=== PATIENT | male | born 1965 ===

== ENCOUNTER 2021-03-16 11:38 | Day surgery (SDC) | payer OTHER ==
[~2021-03-16] VITALS: Ht 190.5 cm; Wt 129.9 kg
[~2021-03-16 11:38] MED LIST: ATOR20 PO; Adult Low Dose81 MG PO; Hydrochlorothia25 MG PO; Rapaflo8 MG PO; TAMS.4ER PO
[2021-03-16] MEDS ORDERED: THERA-D2000 UNIT PO (12:12)
[2021-03-16] MEDS ORDERED: VITAMIN B-121000 MCG PO (12:12)
== END 2021-03-16 14:06 | disposition home or self-care (01) ==
LOC: ORSCSDS 11:38
PROVIDERS: Surgery
PROC: 0DB58ZX Excision of Esophagus, Via Natural or Artificial Opening Endoscopic, Diagnostic (ICD-10-PCS; principal; 2021-03-16 13:00)
PROC: 0DJD8ZZ Inspection of Lower Intestinal Tract, Via Natural or Artificial Opening Endoscopic (ICD-10-PCS; principal; 2021-03-16 13:00)
PROC: 0DB78ZX Excision of Stomach, Pylorus, Via Natural or Artificial Opening Endoscopic, Diagnostic (ICD-10-PCS; principal; 2021-03-16 13:00)
DX: Z12.11 Encounter for screening for malignant neoplasm of colon (principal); Z86.010 Personal history of colon polyps; Z80.0 Family history of malignant neoplasm of digestive organs; K22.8 Other specified diseases of esophagus; K29.70 Gastritis, unspecified, without bleeding; K57.30 Diverticulosis of large intestine without perforation or abscess without bleeding; K44.9 Diaphragmatic hernia without obstruction or gangrene; K31.7 Polyp of stomach and duodenum; I10 Essential (primary) hypertension; E78.5 Hyperlipidemia, unspecified; Z79.899 Other long term (current) drug therapy; Z79.82 Long term (current) use of aspirin
CPT/HCPCS: 43239; G0121; 88305; 88342; J2250; J2704; J7120

== ENCOUNTER 2024-08-15 11:28 | Day surgery (SDC) | payer BC ==
[~2024-08-15] VITALS: Ht 188 cm; Wt 121.5 kg
[~2024-08-15 11:28] MED LIST changes: +Lactated Ringer's 1,000 ML IV ONE; +THERA-D2000 UNIT PO; +VITAMIN B-121000 MCG PO
[2024-08-15] MEDS ORDERED: CeFAZolin Sodium 3,000 MG in NS 100 ML IV SCH (12:05)
[2024-08-15] MEDS ORDERED: SILDENAFIL CITR25 MG PO (12:05)
[2024-08-15] MEDS ORDERED: ROSUVASTATIN CA10 MG PO (12:05)
[2024-08-15] MEDS ORDERED: FINA5 PO (12:05)
[2024-08-15] MEDS ORDERED: Lactated Ringer's 1,000 ML IV ONE (12:13)
[2024-08-15] MEDS ORDERED: Midazolam HCl 1MG / ML 2ML Vial ONE (12:57)
[2024-08-15] MEDS ORDERED: EPINEPhrine HCl 1 MG/ML 1ML Amp ONE (12:58)
[2024-08-15] MEDS ORDERED: Bupivacaine 0.5% HCl 5 MG/ML 30MLVIAL ONE (12:58)
[2024-08-15] MEDS ORDERED: FentaNYL Citrate 50 MCG/ML 2 ML Injection ONE ×2 (13:22→13:42)
[2024-08-15] MEDS ORDERED: propofoL 20 ML IV ONE (13:22)
--- NOTE | 2024-08-15 13:23 | NUR ---
08/15/24 1323 JOJO OWEN 1314 TIME OUT PRIOR TO NERVE BLOCK PROCEDURE, COMPLETED AT BEDSIDE WITH THIS RN, JMB RN, AND ANESTHESIA.
[2024-08-15] MEDS ORDERED: Phenylephrine HCl 100 MCG/ML-NS 10MLSYR (1MG/10ML) ONE (13:28)
[2024-08-15] MEDS ORDERED: Dexamethasone Sod Phos 10 MG/ML 1ML VIAL ONE (13:29)
[2024-08-15] MEDS ORDERED: Ondansetron HCl 2 MG / ML 2ML Vial ONE (13:29)
--- NOTE | 2024-08-15 13:46 | NUR ---
08/15/[address] IN AT 1340 TO TAKE OVER FOR [facility] RADIATOR SPECIALIST.
[2024-08-15] MEDS ORDERED: Glycopyrrolate 0.2 MG/ML 5ML VIAL ONE (13:59)
[2024-08-15 14:30] VITALS: BP 110/67
== END 2024-08-15 15:07 | disposition home or self-care (01) ==
LOC: ORSCSDS 11:28
PROVIDERS: Orthopaedic Surgery
PROC: 0PSM04Z Reposition Right Carpal with Internal Fixation Device, Open Approach (ICD-10-PCS; principal; 2024-08-15 13:00)
DX: S62.001A Unspecified fracture of navicular [scaphoid] bone of right wrist, initial encounter for closed fracture (principal); W18.30XA Fall on same level, unspecified, initial encounter; E78.5 Hyperlipidemia, unspecified; I10 Essential (primary) hypertension; E78.00 Pure hypercholesterolemia, unspecified; Z87.891 Personal history of nicotine dependence; Z79.82 Long term (current) use of aspirin
CPT/HCPCS: C1713; C1769; J0171; J0690; J1100; J2250; J2371; J2405; J2704; J3010; J7120